=== PATIENT | male | born 1970 | race Caucasian/White ===

== ENCOUNTER 2020-10-13 10:00 | Emergency (ER) | payer OTHER | END 2020-10-13 12:40 | disposition home or self-care (01) | LOC: JVIRT 10:00 | DX: Z11.59 Encounter for screening for other viral diseases (principal) | CPT/HCPCS: C9803; Q3014-GT; U0003 ==

== ENCOUNTER 2020-10-23 14:00 | Emergency (ER) | payer OTHER | END 2020-10-23 14:56 | disposition home or self-care (01) | LOC: JVIRT 14:00 | DX: Z20.828 Contact with and (suspected) exposure to other viral communicable diseases (principal) | CPT/HCPCS: C9803; G2012-GT; Q3014-GT; U0003 ==